=== PATIENT | female | born 1975 | race Caucasian/White ===

== ENCOUNTER 2017-03-14 11:07 | Emergency (ER) | payer BC ==
[2017-03-14] MEDS: HYDROcodone/APAP 5/325MG 1 TAB TABLET PO (13:06)
[2017-03-14 13:07] LABS: URINE HCG POC HCG NEGATIVE (Negative)
== END 2017-03-14 13:54 | disposition home or self-care (01) ==
LOC: ER 11:07
DX: S39.012A Strain of muscle, fascia and tendon of lower back, initial encounter (principal); W00.9XXA Unspecified fall due to ice and snow, initial encounter; Y93.89 Activity, other specified; Y92.89 Other specified places as the place of occurrence of the external cause; Y99.8 Other external cause status
CPT/HCPCS: 72100; 81025; 99284

== ENCOUNTER → 2017-04-27 | Outpatient (CLI) | payer BC | END | disposition home or self-care (01) | LOC: KCIC 11:20 | DX: M17.11 Unilateral primary osteoarthritis, right knee (principal); M25.761 Osteophyte, right knee | CPT/HCPCS: 73562 ==

== ENCOUNTER 2017-04-29 14:47 | Emergency (ER) | payer BC ==
[2017-04-29] MEDS: KETOROLAC 60 MG/2 ML INJ. IM ×2 (15:32)
[2017-04-29] MEDS: DEXAMETHASONE SOD PHOS 20 MG/5 ML VIAL. IM ×2 (15:32)
[2017-04-29] MEDS: MORPHINE SULFATE 10 MG/ML VIAL. IM ×2 (15:33)
== END 2017-04-29 15:50 | disposition home or self-care (01) ==
LOC: ER 14:47
DX: M25.561 Pain in right knee (principal)
CPT/HCPCS: 96372; 99284-25; J1100; J1885; J2270

== ENCOUNTER 2018-10-26 08:09 | Day surgery (SDC) | payer BC ==
[~2018-10-26] VITALS: Ht 175.3 cm; Wt 125.0 kg
[~2018-10-26 08:09] MED LIST: BUPIVACAINE-EPI 0.5%-1:200000 MPF 30 ML VIAL. INJ ONE; HYDR-3164 PO; HYDROmorphone 2 MG/ML VIAL IV PRN; IV RINGERS,LACTATED 1000ML 1,000 ML IV SCH; LIDOCAINE 1% PF 2 ML VIAL. ID PRN; METH4TAB2 PO; MORPHINE SULFATE 2 MG/ML VIAL. IV PRN; OMEP20TA8 PO; ONDANSETRON PF 4 MG/2 ML VIAL. IV PRN; PROCHLORPERAZINE 10 MG/2 ML VIAL. IV PRN; TOLT4CAP12 PO; fentaNYL PF VIAL 100 MCG/2 ML VIAL IV PRN
[2018-10-26] MEDS ORDERED: ROCURONIUM 50 MG/5 ML VIAL. ONE ×2 (08:44→11:01)
[2018-10-26] MEDS ORDERED: DEXAMETHASONE SOD PHOS 4 MG/ML VIAL ONE (08:44)
[2018-10-26] MEDS ORDERED: LIDOCAINE 2% PF 5 ML VIAL. ONE (08:44)
[2018-10-26] MEDS ORDERED: PROPOFOL 20 ML IV ONE (08:44)
[2018-10-26] MEDS ORDERED: ONDANSETRON PF 4 MG/2 ML VIAL. ONE (08:46)
[2018-10-26] MEDS ORDERED: SEVOFLURANE 61 TO 120 MINUTES. IH ONE (08:46)
[2018-10-26] MEDS ORDERED: NEOSTIGMINE METHYLSULFATE 5 MG/5 ML SYRINGE. ONE (08:47)
[2018-10-26] MEDS ORDERED: GLYCOPYRROLATE 1 MG/5 ML VIAL. ONE (08:47)
[2018-10-26] MEDS ORDERED: IOHEXOL 300 MG/ML 50 ML VIAL. ONE (09:22)
[2018-10-26] MEDS ORDERED: SURGICEL HEMOSTAT 4X8 EACH. ONE (09:22)
[2018-10-26] MEDS ORDERED: BUPIVACAINE-EPI 0.5%-1:200000 MPF 30 ML VIAL. ONE (09:25)
[2018-10-26] MEDS ORDERED: KETOROLAC 30 MG/ML INJ FOR OR. INJ ONE (10:17)
[2018-10-26] MEDS ORDERED: fentaNYL PF VIAL 100 MCG/2 ML VIAL ONE ×2 (10:53→11:59)
--- NOTE | 2018-10-26 11:08 | RAD ---
Indication: Intraoperative cholangiogram. TECHNIQUE: Intraoperative cholangiogram with total fluoroscopy time of 0.10 minutes and 3 images. COMPARISON: None FINDINGS: No filling defects seen in the CBD. Cystic duct is cannulated. Contrast is seen in the second portion of duodenum. IMPRESSION: No fluoroscopic evidence of choledocholithiasis. Electronically signed by: Basil Jansen DO (10/26/2018 11:05 AM) [facility]
[2018-10-26] MEDS ORDERED: oxyCODONE/APAP 5/325 1 TAB TABLET PO ONE ×2 (11:30)
--- NOTE | 2018-10-26 12:01 | PDOC4 ---
Operative Note Operative Note Operative Note: Preoperative Diagnosis: Symptomatic cholelithiasis Postoperative Diagnosis: Acute and chronic cholecystitis Procedure: Laparoscopic cholecystectomy with intraoperative cholangiogram Surgeons: [employer] Operator: Marlene POTTS Anesthesia: Gen. Estimated Blood Loss: 50 mL Specimen: Gallbladder to pathology Drains: None Complications: None Indications: The patient is a 43-year-old female who is been experiencing recurrent upper abdominal pain consistent with biliary colic. Surgical treatment was offered by means of a laparoscopic cholecystectomy. The risks of surgery were discussed which include bleeding, infection, bile duct injury, bile leak, pain, the potential for additional surgeries or procedures. The patient understands and would like to proceed. Description: The patient was taken to the operating room and laid supine on the operating table. General anesthesia was performed. The abdomen was prepped with ChloraPrep and draped in a standard surgical fashion. A small infraumbilical incision was made with a scalpel. The Veress needle was then inserted and a pneumoperitoneum was then created. A 5 mm trocar was then inserted and the laparoscope was introduced. In the upper midabdomen an 11 mm trocar was inserted and in the right upper quadrant two 5 mm trochars were inserted. The gallbladder appeared acute and chronically inflamed was some surrounding adhesions. The adherent omentum was peeled away and the gallbladder was aspirated for decompression. The gallbladder was retracted cephalad. The cystic duct was dissected free from surrounding tissues. One clip was placed on the duct near the gallbladder junction. An opening was made in the duct and a cholangiocatheter placed within and secured with a clip. Using contrast dye and fluoroscopy an intraoperative cholangiogram was performed that appeared unremarkable. The clip and catheter were then withdrawn. Three clips were placed on the cystic duct and it was divided. The cystic artery was then identified, dissected free, doubly clipped and divided as well. The gallbladder was then mobilized away from the liver with cautery. The umbilical 5 millimeter trocar was exchanged for an 11 millimeter trocar. The gallbladder was then placed in an endoscopic bag and extracted at the superior trocar site. The fascia there was closed with an 0 PDS sutures. All blood and irrigation fluid was suctioned and hemostasis was good. The remaining ports were removed and the pneumoperitoneum was relieved. The skin incisions were injected with half percent Marcaine, and all were closed using 4-0 Monocryl suture. Steri-Strips and dressings were then applied. The patient tolerated the procedure well and was sent to the recovery room in stable condition. At the end of the case all counts were correct. CHRISTINA CARRANZA MD Oct 26, 2018 12:01
--- NOTE | 2018-10-26 12:04 | DISCH ---
DISCHARGE INSTRUCTIONS Condition on Discharge Condition on Discharge: Stable Activity After Discharge Activity Instructions for Disc: Other, see below (no lifting over 20 lbs X 2 weeks) Diet after Discharge Diet after Discharge: Regular Wound Incision Care Wound/Incision Care: Other, see below (may remove bandaids tomorrow and shower) Follow-Up Follow up with: Dr Carranza in 2 weeks in office, call for appt [phone] CHRISTINA CARRANZA MD Oct 26, 2018 12:04
[2018-10-26] MEDS: fentaNYL PF VIAL 100 MCG/2 ML VIAL IV PRN ×2 (12:07→12:21)
[2018-10-26] MEDS ORDERED: OXYC1TAB15 PO (12:33)
[2018-10-26 13:20] VITALS: BP 131/82
--- NOTE | 2018-10-30 17:06 | PATHOLOGY ---
[facility] Accession Number: [id number] . 01 Material submitted: . gallbladder - GALLBLADDER AND CONTENTS . 01 Clinical history: . Cholelithiasis. . 02 Diagnosis: Gallbladder, cholecystectomy: - Cholelithiasis. - Acute hemorrhagic and chronic cholecystitis with increased eosinophils. (JPM:[facility]; 10/30/2018) QMS/10/30/2018 . 02 Comment: There is no evidence of malignancy. . 02 Electronically signed: . Alexis Yoon MD, Pathologist NPI- [id number] . 01 Gross description: . Received in formalin labeled "Christiano, Ladan, gallbladder and contents" is an intact cholecystectomy specimen measuring 9.6 x 4.0 x 3.0 cm. The serosa is pink-red and hemorrhagic and the specimen is opened to reveal pink-red hemorrhagic mucosa without polyps or masses. The average wall thickness is 0.3 cm. Calculi are present, which are yellow-gamez and bosselated, measuring 4.5 x 2.3 x 1.0 cm in aggregate and ranging from 0.1-1.6 cm in greatest dimension. Electrical Lineman sections of the fundus and body and the cystic duct margin are submitted in A1. ([facility] [place]; 10/26/2018) SYC/SYC . 02 Pathologist provided ICD-10: K80.12 . 02 CPT . 144153 Specimen Comment: A courtesy copy of this report has been sent to Specimen Comment: [phone], . Specimen Comment: Report sent to / DR SOLIS Performed at: [address], [place], [place] [id number] MD Kike Godwin MD Phone: [phone] Performed at: 02 [facility] [address], [place] [id number] MD Alexis Yoon MD Phone: [phone]
== END 2018-10-26 13:26 | disposition home or self-care (01) ==
LOC: SURG 08:09
PROVIDERS: ATTEND Surgery
DX: K80.12 Calculus of gallbladder with acute and chronic cholecystitis without obstruction (principal); K21.9 Gastro-esophageal reflux disease without esophagitis; F17.210 Nicotine dependence, cigarettes, uncomplicated; Z98.51 Tubal ligation status; Z98.890 Other specified postprocedural states
CPT/HCPCS: 47563; 74300; 81025; 88304; A7015; J1100; J1885; J2001; J2405; J2704; J2710; J3010; J3490; J7030; Q9967